=== PATIENT | female | born 1995 | race Caucasian/White ===

== ENCOUNTER 2017-01-26 18:05 | Inpatient (IN) | payer BC, OTHER ==
[~2017-01-26] VITALS: Ht 149.9 cm; Wt 79.5 kg
[2017-01-26] MEDS ORDERED: PRENA1 CHEW TA1.4 MG PO (18:52)
[2017-01-26 18:54] VITALS: BP 135/77
[2017-01-26 19:08] LABS: EOSINOPHIL (%) 0.2 % (0-5); HEMATOCRIT 33.2 % (36.0-46.0); IMMATURE GRANULOCYTE (%) 0.3 % (0.0-0.7); INSTRUMENT ABS NEUTROPHIL CT 9.6 K/uL; LYMPHOCYTE COUNT 2.3 K/uL (1.0-2.8); MCHC 33.4 G/DL (30.0-36.0); MCV 83.8 FL (83-99); MEAN PLAT.VOLUME 11.9 uM^3 (9.5-12.4); MONOCYTE COUNT 0.5 K/uL (0-0.8); NEUTROPHIL COUNT 9.6 K/uL (1.8-6.4); PLATELET COUNT 205 K/uL (156-360); RBC DIS.WIDTH-CV 12.6 % (11.8-14.6); RBC DIS.WIDTH-SD 38.5 % (39-53); RED BLOOD COUNT 3.96 M/uL (3.80-5.20); WHITE BLOOD COUNT 12.5 K/uL (4.1-10.2)
[2017-01-26 20:00] VITALS: BP 144/91
[2017-01-26 20:52] VITALS: BP 135/74
[2017-01-26 22:02] VITALS: BP 145/82
[2017-01-26 22:53] VITALS: BP 110/52
[2017-01-26 23:55] VITALS: BP 152/82
[2017-01-27] VITALS (35 sets, daily range): BP systolic 109–179; BP diastolic 56–98
[2017-01-27 02:21] LABS: CHLORIDE 107 mEq/L (99-109); POTASSIUM 3.8 mEq/L (3.7-5.4); SODIUM 136 mEq/L (136-147)
[2017-01-27 02:23] LABS: GLUCOSE 80 mg/dL (70-99)
[2017-01-27 02:24] LABS: ANION GAP 10 MEQ/L (2-14)
[2017-01-27 02:25] LABS: TOTAL BILIRUBIN 0.5 mg/dL (0.0-1.0)
[2017-01-27 02:27] LABS: ALKALINE PHOSPHATASE 219 IU/L (3-129); GFR ESTIMATE (CALCULATED) > 59 mL/min/
[2017-01-27 02:28] LABS: UREA NITROGEN (BUN) 11 mg/dL (9-23)
[2017-01-27 02:30] LABS: URIC ACID 4.3 mg/dL (3.1-9.2)
[2017-01-27 03:15] LABS: LACTATE DEHYDROGENASE 138 IU/L (20-246)
[2017-01-27 08:47] LABS: UR CREATININE CONCENTRATION 96.4 MG/DL
[2017-01-28] VITALS (12 sets, daily range): BP systolic 103–135; BP diastolic 52–80
[2017-01-28 09:28] LABS: EOSINOPHIL (%) 0.1 % (0-5); HEMATOCRIT 30.8 % (36.0-46.0); IMMATURE GRANULOCYTE (%) 0.5 % (0.0-0.7); IMMATURE GRANULOCYTE COUNT 0.1 K/uL; INSTRUMENT ABS NEUTROPHIL CT 10.3 K/uL; LYMPHOCYTE COUNT 2.3 K/uL (1.0-2.8); MCHC 33.1 G/DL (30.0-36.0); MCV 84.6 FL (83-99); MEAN PLAT.VOLUME 12.2 uM^3 (9.5-12.4); MONOCYTE (%) 4.3 % (3-12); MONOCYTE COUNT 0.6 K/uL (0-0.8); NEUTROPHIL (%) 77.4 % (45-76); NEUTROPHIL COUNT 10.3 K/uL (1.8-6.4); PLATELET COUNT 183 K/uL (156-360); RBC DIS.WIDTH-CV 12.9 % (11.8-14.6); RBC DIS.WIDTH-SD 39.3 % (39-53); RED BLOOD COUNT 3.64 M/uL (3.80-5.20); WHITE BLOOD COUNT 13.2 K/uL (4.1-10.2)
[2017-01-28 10:48] LABS: HBSG INDEX 0.24; HPCA INDEX 0.11
[2017-01-28 10:50] LABS: ANTI-HEPATITIS A VIRUS (IGM) Nonreactive; ANTI-HEPATITIS B CORE (IGM) Nonreactive; HAV INDEX 0.15
[2017-01-29 00:08] VITALS: BP 114/57
[2017-01-29 02:46] VITALS: BP 109/57
[2017-01-29 06:15] LABS: ALKALINE PHOSPHATASE 147 IU/L (3-129); ANION GAP 8 MEQ/L (2-14); CHLORIDE 108 MEQ/L (99-109); GFR ESTIMATE (CALCULATED) > 59 mL/min/; GLUCOSE 75 mg/dL (70-99); POTASSIUM 4.1 MEQ/L (3.7-5.4); SAMPLE HEMOLYSIS CHECK 0; SAMPLE ICTERIC CHECK 0; SAMPLE LIPEMIA CHECK 0; SODIUM 139 MEQ/L (136-147); TOTAL BILIRUBIN 0.2 MG/DL (0.0-1.0); UREA NITROGEN (BUN) 9 mg/dL (9-23)
[2017-01-29 07:39] VITALS: BP 120/66
[2017-01-29 07:45] VITALS: BP 120/66
[2017-01-29 12:30] VITALS: BP 114/58
== END 2017-01-29 14:59 | disposition home or self-care (01) | DRG 775 ==
LOC: LDRP-OP → 2WEST 18:06 → LDRP-OP 02-18 12:20
PROVIDERS: Advanced Practice Midwife; Obstetrics & Gynecology; Obstetrics & Gynecology Obstetrics
PROC: 10E0XZZ Delivery of Products of Conception, External Approach (ICD-10-PCS; principal; 2017-01-27)
PROC: 3E0P7GC Introduction of Other Therapeutic Substance into Female Reproductive, Via Natural or Artificial Opening (ICD-10-PCS; principal; 2017-01-27)
PROC: 3E033VJ Introduction of Other Hormone into Peripheral Vein, Percutaneous Approach (ICD-10-PCS; principal; 2017-01-27)
PROC: 0HQ9XZZ Repair Perineum Skin, External Approach (ICD-10-PCS; principal; 2017-01-27)
PROC: 3E0S3NZ Introduction of Analgesics, Hypnotics, Sedatives into Epidural Space, Percutaneous Approach (ICD-10-PCS; principal; 2017-01-27)
DX: O48.0 Post-term pregnancy (principal); Z3A.41 41 weeks gestation of pregnancy; Z37.0 Single live birth; O99.214 Obesity complicating childbirth; Z68.31 Body mass index [BMI] 31.0-31.9, adult; O99.344 Other mental disorders complicating childbirth; F41.9 Anxiety disorder, unspecified; F32.9 Major depressive disorder, single episode, unspecified; O28.0 Abnormal hematological finding on antenatal screening of mother; R74.8 Abnormal levels of other serum enzymes; O14.04 Mild to moderate pre-eclampsia, complicating childbirth; O99.824 Streptococcus B carrier state complicating childbirth; O70.0 First degree perineal laceration during delivery; O69.81X0 Labor and delivery complicated by cord around neck, without compression, not applicable or unspecified
CPT/HCPCS: 80053; 80074; 82570; 83615; 84156; 84550; 85025; C1755; G0378; J2540; J3010; J3475; J7120